=== PATIENT | female | born 1975 | race Caucasian/White ===

== ENCOUNTER 2017-01-31 09:35 | Emergency (ER) | payer BC ==
[~2017-01-31] VITALS: Ht 167.6 cm; Wt 113.0 kg
[2017-01-31 09:37] VITALS: BP 161/41; PULSE 86; RESP 15; TEMP 98.3; O2SAT 99
--- NOTE | 2017-01-31 09:53 | PD ---
HPI . Status post fall with right wrist pain and neck pain Chief Complaint: Fall Time Seen by Provider: 09:53 Travel History International Travel<30 days: No Contact w/Intl Traveler<30days: No Traveled to known affect area: No History of Present Illness HPI 42-year-old female here with complaints of right wrist pain and neck pain. Patient fell on outstretched wrist yesterday around 6 PM. She simply lost her balance and came down on her right wrist when he catches herself. She also thinks that she may have tweaked or cracked her neck. She is now complaining of pain in the right distal wrist and first and second metacarpal area. She also had complaints of pain in side of her neck. She denies any head injury or loss of consciousness. She says her pain is very mild, but she wants know if anything is broken. PFSH Past Medical History ?: Not LMP: 01/2017 Social History Tobacco Use: No Allergies-Medications (Allergen,Severity, Reaction): Coded Allergies: No Known Allergies (Unverified , 01/31/17) Review of Systems General / Constitutional: No: Fever Eyes: No: Visual changes HENT: Positive: Neck Pain, No: Headaches Cardiovascular: No: Chest Pain or Discomfort Respiratory: No: Shortness of Breath Gastrointestinal: No: Abdominal Pain Genitourinary: No: Dysuria Musculoskeletal: Positive: Pain (right wrist ) Skin: No Rash Neurologic: No: Weakness Psychiatric: No: Depression Endocrine: No: Polydipsia Hematologic/Lymphatic: No: Easy Bruising Physical Exam Narrative GENERAL: AAO x 3, no acute distress, Well-nourished, well-developed patient. SKIN: Warm and dry. No visible rashes or bruising. HEAD: Normocephalic and atraumatic. EYES: No scleral icterus. No injection or drainage. EOM intact, PERRLA ENT: No nasal drainage noted. Mucous membranes pink. Airway patent. NECK: Supple, trachea midline. No JVD. No C-spine process tenderness, drop-off , flexion and extension normal. There is tenderness to palpation of bilateral trapezius muscles CARDIOVASCULAR: Regular rate and rhythm without murmurs, gallops, or rubs. RESPIRATORY: Breath sounds equal bilaterally. No accessory muscle use. No rhonchi or rales. GASTROINTESTINAL: Visual inspection normal EXTREMITIES: Mild edema to the right first and second metacarpal area. There is also tenderness at the distal radius of right hand. Distal radius and ulnar pulses are normal right hand. Capillary refill normal. All digits move normally on the bilateral hands BACK: No obvious deformity. NEURO: CN II-12 intact, auditor supervisor strength normal b/l, UE and LE 5/5, no focal deficits PSYCH: AAO x 3, normal affect. Data Data Last Documented VS Vital Signs Date Time Temp Pulse Resp B/P (MAP) Pulse Ox O2 Delivery O2 Flow Rate FiO2 01/31/17 09:37 98.3 86 15 161/41 (81) 99 Orders Orders Hand, Complete ([id number]) (01/31/17 09:56) Wrist, Complete ([id number]) (01/31/17 09:56) [facility] Medical Decision Making Medical Screen Exam Complete: Yes Emergency Medical Condition: Yes Medical Record Reviewed: Yes Differential Diagnosis right hand pain, neck pain, fall, right hand fracture, bone contusion Narrative Course 42-year-old female here with complaints of right hand pain after falling on outstretched wrist. She also has some neck pain. On examination she does not have any significant findings on the neck. I do not recommend C-spine imaging and she does not meet nexus rules. She does have some tenderness to the right distal radius and metacarpals. I will check an x-ray to rule out fracture. I offered her pain medication and she declined. Discussed xray results with Tete in radiology: no acute fracture. Discussed with patient. Advised f/u with PCP. OTC Ibuprofen Patient verbalized understanding of instructions, questions were answered, and thanked me for their care. I advised them if their condition worsens, please return to the nearest emergency room for further care. Diagnosis Primary Impression: Soft tissue injury Patient Instructions: General Instructions Additional Instructions: Rest the affected area as much as possible. Ice this area for 15-20 minutes at a time. You can do this every hour or as much as tolerated. Elevate this area. Use ibuprofen as needed for pain and inflammation. Please return to emergency department if your symptoms return or worsen. Follow up with your primary care provider. Take medications as prescribed. Disposition: 01 DISCHARGE HOME Condition: Stable Adriana De Leon Jan 31, 2017 09:53
--- NOTE | 2017-01-31 10:29 | RADRPT ---
EXAM DATE/TIME: 01/31/2017 10:06 [facility] COMPARISON: No previous studies available for comparison. INDICATIONS : Fall. Caught self with open palm. MEDICAL HISTORY : None. SURGICAL HISTORY : None. ENCOUNTER: Initial ACUITY: 1 day PAIN SCORE: 7/10 LOCATION: Right medial hand/wrist FINDINGS: No definite fractures, or dislocations are identified. No definite lytic or sclerotic lesion is seen . The joint spaces are well maintained. CONCLUSION: Unremarkable study. Isamar Nogueira MD on January 31, 2017 at 10:27 Board Certified Radiologist. This report was verified electronically.
--- NOTE | 2017-01-31 10:29 | RADRPT ---
EXAM DATE/TIME: 01/31/2017 10:06 [facility] COMPARISON: No previous studies available for comparison. INDICATIONS : Fall. Caught self with open palm. MEDICAL HISTORY : None. SURGICAL HISTORY : None. ENCOUNTER: Initial ACUITY: 1 day PAIN SCORE: 7/10 LOCATION: Right medial hand/wrist FINDINGS: No definite fractures, or dislocations are identified. No definite lytic or sclerotic lesion is seen . The joint spaces are well maintained. CONCLUSION: Unremarkable study. Isamar Nogueira MD on January 31, 2017 at 10:18 Board Certified Radiologist. This report was verified electronically.
== END 2017-01-31 09:36 | disposition home or self-care (01) ==
LOC: NEPK 09:35 → NETRI 09:36
DX: M25.531 Pain in right wrist (principal); M54.2 Cervicalgia; W01.0XXA Fall on same level from slipping, tripping and stumbling without subsequent striking against object, initial encounter
CPT/HCPCS: 73110; 73130; 99283